=== PATIENT | male | born 1965 | race Caucasian/White ===

== ENCOUNTER 2023-02-19 00:23 | Day surgery (SDC) | payer BC, SELFPAY ==
[2022-11-29 13:06] VITALS: BMI 30.6
[2023-02-07 13:48] VITALS: BMI 30.6
--- NOTE | 2023-02-07 14:01 | PC.NURSE ---
Health history and medications updated. Instructions for bowel prep and NPO reviewed in relation to procedure 02/19/23
[2023-02-19 06:33] VITALS: BP 134/60; PULSE 76; RESP 18; TEMP 35.8; O2SAT 98
[2023-02-19] MEDS: LACTATED RINGERS 1,000 ML 150 ML IV CONT (06:34)
--- NOTE | 2023-02-19 07:14 | P.PNAN_ITS ---
Anes - Initial Pre Proc Eval Procedure: Operation Date: 02/19/23 07:30 Proposed Procedures p Screening Colonoscopy - Richy Esteves MD Date/Time: 02/19/23 07:14 Surgeon: Richy Esteves MD Pre Op Diagnosis: neoplasm screening Patient Data Age: 57 Gender: M Height: 1.83 m Weight: 103.7 kg Last Vital Signs Temp 96.5 F L 02/19/23 06:33 Pulse 76 02/19/23 06:33 Resp 18 02/19/23 06:33 BP 134/60 02/19/23 06:33 Pulse Ox 98 02/19/23 06:33 O2 Del Method Room Air 02/19/23 06:33 Allergies Allergy/AdvReac Type Severity Reaction Status Date / Time No Known Allergies Allergy Verified 02/19/23 06:32 Home Medications Medication Instructions Recorded Confirmed Type losartan 100 mg tablet 100 mg PO DAILY #90 tabs 11/22/22 02/19/23 Rx levothyroxine 75 mcg tablet 75 mcg PO DAILY 11/29/22 02/19/23 History Patient hx anesthesia problems: none Family hx anesthesia problems: none Results Review: All pre-operative results and documents have been reviewed as part of the pre- operative evaluation. [facility] Past Medical History Medical History HTN (hypertension) Hypothyroid Lower back pain Retinal detachment Family History Family History Father Hypertension Heart disease Social History Social History Smoking status: Never smoker Alcohol intake: current Drinks per week: 15 Alcohol use details: beer Substance use: never Substance use type: does not use Living arrangements: with family Occupation/Education: occupation Gender identity (if verbalized by the patient): Male Spiritual care concerns: No Anes - Eval Final PreProcedure Day of Procedure 02/19/23 07:14 Patient weight: normal Heart: irregular rhythm Lungs: clear to auscultation Airway: Mallampati scale class II Neurological: alert and oriented Last oral intake: >/= 8 hours ASA classification: II Emergent: no Anesthetic plan: proceed Anesthesia type and monitoring: general GIVS and standard monitoring Results Review: All pre-operative results and documents have been reviewed as part of the pre- operative evaluation. Informed Consent: The patient's anesthetic plan and its attendant risks and benefits were discussed with the patient/family/POA. Questions were solicited and answers provided to the satisfaction of the patient/family/POA.
--- NOTE | 2023-02-19 07:29 | PM.HPGS ---
History of Present Illness History of Present Illness Consent: Risks, benefits, and alternatives have been discussed and questions answered. Patient agrees to proceed with procedure. Chief complaint: neoplasm screening Narrative: Manpreet Ott is a 57 year old male Presents for screening colonoscopy. Patient recently found to have positive Cologuard test. Patient reports his current weight appetite and bowel movements are normal. Patient denies abdominal pain. He has had no bleeding. Family history noncontributory. Review of Systems Review of Systems: Review of systems noncontributory [facility] Past Medical History Medical History HTN (hypertension) Hypothyroid Lower back pain Retinal detachment Family History Family History Father Hypertension Heart disease Social History Social History Smoking status: Never smoker Alcohol intake: current Drinks per week: 15 Alcohol use details: beer Substance use: never Substance use type: does not use Living arrangements: with family Occupation/Education: occupation Gender identity (if verbalized by the patient): Male Spiritual care concerns: No Meds Home Medications and Allergies Home Medications Medication Instructions Recorded Confirmed Type losartan 100 mg tablet 100 mg PO DAILY #90 tabs 11/22/22 02/19/23 Rx levothyroxine 75 mcg tablet 75 mcg PO DAILY 11/29/22 02/19/23 History Allergies Allergy/AdvReac Type Severity Reaction Status Date / Time No Known Allergies Allergy Verified 02/19/23 06:32 Vital Signs Vital Signs - 24 hr 02/19/23 06:33 Temperature 96.5 F L Pulse Rate 76 Respiratory Rate 18 Blood Pressure 134/60 Pulse Oximetry 98 Oxygen Delivery Room Air Exam Narrative: Physical exam reveals patient to be alert. Vital signs stable. HEENT exam is unremarkable. Patient is anicteric. Lungs are clear to auscultation and percussion. Heart is without murmur or extra sounds. Abdomen bowel sounds present soft nontender with no organomegaly. Digital external rectal exam is normal. Assessment and Plan Assessment and plan (1) Positive colorectal cancer screening using Cologuard test: Code(s): R19.5 - Other fecal abnormalities Status: Acute Assessment and Plan: Patient presents today for screening colonoscopy because of positive Cologuard test. Further recommendations may be given after endoscopy.
[2023-02-19 07:58] VITALS: BP 117/67; PULSE 90; RESP 24; TEMP 35.8; O2SAT 98
[2023-02-19 08:08] VITALS: BP 114/93; PULSE 70; RESP 24; TEMP 35.8; O2SAT 99
[2023-02-19 08:18] VITALS: BP 121/96; PULSE 69; RESP 18; TEMP 35.8; O2SAT 99
== END 2023-02-19 08:25 | disposition home or self-care (01) ==
PROVIDERS: PCP Physician Assistant Medical; Visit Provider Internal Medicine Gastroenterology
PROC: 0DJD8ZZ Inspection of Lower Intestinal Tract, Via Natural or Artificial Opening Endoscopic (ICD-10-PCS; CPT 45378; principal; 2023-02-19 07:30)
DX: R19.5 Other fecal abnormalities (principal); K62.1 Rectal polyp; K64.8 Other hemorrhoids; I10 Essential (primary) hypertension; E03.9 Hypothyroidism, unspecified
CPT/HCPCS: 45380; 88305; J2704; J7120

== ENCOUNTER 2023-03-11 14:54 | Outpatient (CLI) | payer BC, SELFPAY ==
--- NOTE | 2023-03-21 12:00 | WPDHOLTEREM ---
Holter/Event Monitor Holter/Event Monitor Date of procedure: 03/11/23 Holter/Event Procedure: 48 Hr Holter Monitor Indications: Cardiac arrhythmia Conclusion: 1. 48 hour holter monitor on 03/11/23. 2. Underlying rhythm is sinus rhythm. HR range 47-167 bpm; average HR 77 bpm. HR at 167 bpm was at 14:55. 3. There are 12 premature supraventricular complexes and 1 supraventricular couplet. No supraventricular tachycardia. 4. There are 8,745 premature ventricular complexes, 2,035 ventricular bigeminy and 35,819 ventricular trigeminy. No ventricular tachycardia. 5. No sinoatrial or atrioventricular blocks. No significant pauses greater than 2 seconds. 6. No symptoms available for correlation.
== END 2023-03-11 14:55 | disposition home or self-care (01) ==
LOC: ANHCARD 14:55
PROVIDERS: PCP Physician Assistant Medical; Visit Provider Family Medicine
DX: I49.9 Cardiac arrhythmia, unspecified (principal)
CPT/HCPCS: 93225; 93226

== ENCOUNTER 2023-04-09 09:07 | Outpatient (CLI) | payer BC, SELFPAY ==
--- NOTE | 2023-04-13 15:40 | WPDHOMESLEEP ---
Sleep Study - Home Unattended Date of Study: 04/09/23 Ordering Provider: Emery Freedman DO Interpreting Provider: Nita Mehta MD Home Sleep Study Type: Watch PAT Height: 1.83 m Weight: 104.326 kg Body Mass Index: 31.1 Neck Circumference (inches): 16.75 [place]: 0 Reason for Sleep Study Irregular heartbeats Sleep History Farhad Ott is a 57-year-old man who rarely awakens from sleep feeling short of breath or awakens at night with heartburn, belching or coughing. He frequently snores loudly enough that others complain about it. He rarely has trouble sleeping with a cold. He rarely wakes up gasping for breath at night. He rarely has breathing problems at night observed by others. He rarely sweats excessively at night. He rarely notices his heart pounding or beating irregularly at night. He rarely falls asleep during the day. He rarely falls asleep involuntarily or while driving. He does not have loss of muscle tone with strong emotion. He does not have daytime difficulties due to excessive sleepiness. He does not feel paralyzed on waking or falling asleep. He does not have vivid dreamlike scenes on waking or falling asleep. He does not feel afraid to go to sleep. He does not have nightmares. He frequently remembers his dreams. He rarely has racing thoughts. He does not have feelings of sadness, depression or anxiety. He denies muscular tension. He does not have kicking at night or notice parts of his body jerking. He does not have crawling or aching feelings in his legs or any kind of leg pain at night. He does not have morning jaw pain. He does not grind his teeth during sleep. He is not bothered by pain during the day. He is not awakened by pain at night. He does not wake up feeling stiff in the morning with sore achy muscles or pain in the neck and spine. Normal bedtime is between 9:00 p.m. and 10:00 p.m.. He falls asleep within a few minutes. He typically wakes once at night to go to the bathroom. He generally can return to sleep within 5 minutes. He wakes in the morning at 6:15 a.m.. His weekend bedtime is between 11:00 p.m. and 12:00 p.m., he wakes at 7 in the morning. He generally does not take naps in the afternoon or evening. Sometimes of very short nap may be refreshing. Most of the time he feels refreshed when he wakes in the morning. Habits: Never smoked tobacco. No caffeine. Alcohol 3-4 beers. No recreational substances. [facility] Past Medical History Medical History Abnormal EKG GERD (gastroesophageal reflux disease) HTN (hypertension) Hypothyroid Irregular heart beat Lower back pain Retinal detachment Surgical History Surgical History H/O colonoscopy Family History Family History Father Hypertension Heart disease Social History Social History Smoking status: Never smoker Alcohol intake: current Drinks per week: 15 Alcohol use details: beer Substance use: never Substance use type: does not use Living arrangements: with family Occupation/Education: occupation Gender identity (if verbalized by the patient): Male Spiritual care concerns: No Medications Home Medications Medication Instructions Recorded Confirmed Type losartan 100 mg tablet 100 mg PO DAILY #90 tabs 11/22/22 03/19/23 Rx levothyroxine 75 mcg tablet 75 mcg PO DAILY #90 tabs 02/21/23 03/19/23 Rx pantoprazole 40 mg tablet,delayed 40 mg PO QAM #90 tabs 03/04/23 03/19/23 Rx release (Protonix) Sleep Procedure The sleep study was completed using [employer] a technically adequate device with seven channels: peripheral arterial tone, actigraphy, body position, snore, respiratory movement, pulse oximetry, sleep staging, and heart rate. Prior to using the device, the nico
[2023-04-13 15:53] VITALS: BMI 31.1
--- NOTE | 2023-06-19 15:44 | SLEEP ---
PER [facility] AT [facility] SLEEP PT REF TO SLEEP DENT
== END 2023-04-12 10:18 | disposition home or self-care (01) ==
PROVIDERS: Visit Provider Internal Medicine Cardiovascular Disease
DX: G47.33 Obstructive sleep apnea (adult) (pediatric) (principal); K21.9 Gastro-esophageal reflux disease without esophagitis; I10 Essential (primary) hypertension; E03.9 Hypothyroidism, unspecified
CPT/HCPCS: 95800

== ENCOUNTER 2023-05-03 07:34 | Outpatient (CLI) | payer BC, SELFPAY ==
--- NOTE | 2023-05-03 07:40 | ECHO_ITS ---
Patient Info Name: Manpreet Ott Age: 57 years : 1965 Gender: Male Ht: 72 in Wt: 230 lbs BSA: 2.33 m2 HR: 75 bpm BP: 140 / 88 mmHg Technical Quality: Good Exam Date: 05/03/2023 8:18 AM Exam Location: [facility] Patient Status: Outpatient Admit Date: 05/03/2023 Staff Ordering Physician: Emery Freedman DO Dermatology Sales Representative: Arabella Marcano RDCS Attending Provider: Emery Freedman DO Referring Physician: Tano PINO; Exam Type: CA echo doppler color flow Study Info Indications I49.3 - Ventricular premature depolarization Complete two-dimensional, color flow and Doppler transthoracic echocardiogram is performed. Summary 1. Complete two-dimensional, color flow and Doppler transthoracic echocardiogram is performed. 2. Left ventricular chamber dimension is normal. 3. Left ventricular systolic function is normal, estimated at 60-65%. 4. The left ventricular diastolic function is normal. 5. E/e' 9 is minimally elevated. 6. Global longitudinal strain is abnormal at -14.7%. 7. Left atrial chamber dimension is mildly enlarged. 8. There is trace mitral valve regurgitation. 9. There is trace tricuspid valve regurgitation. 10. No pulmonary hypertension, estimated pulmonary arterial systolic pressure is 21 mmHg. Left Ventricle E/e' 9 is minimally elevated. Global longitudinal strain is abnormal at -14.7%. Left ventricular chamber dimension is normal. Left ventricular systolic function is normal, estimated at 60-65%. The left ventricular diastolic function is normal. Right Ventricle Right ventricular systolic function is normal and with normal TAPSE 2.2 cm. Right ventricular chamber dimension is normal. Left Atria Left atrial chamber dimension is mildly enlarged. Right Atria Right atrial chamber dimension is normal. Aortic Valve The aortic valve is trileaflet. There is no aortic valve stenosis. There is no aortic valve regurgitation. Pulmonic Valve There is no pulmonic regurgitation. Mitral Valve There is no mitral valve stenosis. There is trace mitral valve regurgitation. Tricuspid Valve There is trace tricuspid valve regurgitation. No pulmonary hypertension, estimated pulmonary arterial systolic pressure is 21 mmHg. Pericardium/Pleural There is no pericardial effusion. Inferior Vena Cava Normal inferior vena cava with >50% collapse upon inspiration consistent with normal right atrial pressure, 5 mmHg. Aorta The aortic root size at the sinus of Valsalva is normal. Left Ventricular Outflow Tract Name Value Normal LVOT 2D LVOT Diameter 2.0 cm LVOT Doppler LVOT Peak Velocity 83 cm/s LVOT Peak Gradient 3 mmHg LVOT Mean Gradient 2 mmHg LVOT VTI 18 cm LVOT VTI/AV VTI Ratio 0.9 LVOT Stroke Volume 59 ml LVOT CO 3.6 l/min LVOT CI 1.5 l/min/m2 Pulmonic Valve Name Value Normal
--- NOTE | 2023-05-03 07:40 | EST_ITS ---
Patient Info Name: Manpreet Ott Age: 57 years : 1965 Gender: Male Ht: 72 in Wt: 230 lbs BSA: 2.33 m2 HR: 68 bpm BP: 133 / 79 mmHg Heart Rhythm: Sinus Rhythm Exam Date: 05/03/2023 9:35 AM Exam Location: [facility] Stress Patient Status: Outpatient Admit Date: 05/03/2023 Staff Ordering Physician: Emery Freedman DO Attending Provider: Emery Freedman DO Exercise Technologist: Ivy Henderson CT Exercise Physician: Emery Freedman DO Exam Type: CA stress test treadmill Study Info Indications I49.3 - Ventricular premature depolarization A treadmill exercise stress test was performed. Summary 1. 1. Negative Theodore exercise stress test for ischemic ST changes by ECG criteria. 2. 2. Reduced functional capacity achieving 8.9 METs of workload due to early termination of test as a result of very high blood pressure with exercise. 3. 3. Hypertensive response to exercise. 4. 4. Appropriate HR response to exercise. 5. 5. Appropriate HR recovery at 1 minute post exercise. 6. 6. No imaging with stress testing. 7. 7. Patient informed of the above results. Protocol: Theodore Stress ECG Details Stage: REST Duration (min): 6 min : 32 sec Speed (mph): 0.0 Grade (%): 0 HR (bpm): 70 SBP (mmHg): 133 DBP (mmHg): 79 METS: --- Stage: STAGE 1 Duration (min): 1 min : 0 sec Speed (mph): 1.7 Grade (%): 10 HR (bpm): 100 SBP (mmHg): 133 DBP (mmHg): 79 METS: --- Stage: STAGE 1 Duration (min): 2 min : 0 sec Speed (mph): 1.7 Grade (%): 10 HR (bpm): 111 SBP (mmHg): 133 DBP (mmHg): 79 METS: --- Stage: STAGE 1 Duration (min): 3 min : 0 sec Speed (mph): 1.7 Grade (%): 10 HR (bpm): 117 SBP (mmHg): 210 DBP (mmHg): 59 METS: --- Stage: STAGE 2 Duration (min): 1 min : 0 sec Speed (mph): 2.5 Grade (%): 12 HR (bpm): 120 SBP (mmHg): 220 DBP (mmHg): 64 METS: --- Stage: STAGE 2 Duration (min): 2 min : 0 sec Speed (mph): 2.5 Grade (%): 12 HR (bpm): 123 SBP (mmHg): 230 DBP (mmHg): 63 METS: --- Stage: STAGE 2 Duration (min): 3 min : 0 sec Speed (mph): 2.5 Grade (%): 12 HR (bpm): 127 SBP (mmHg): 229 DBP (mmHg): 62 METS: --- Stage: STAGE 3 Duration (min): 1 min : 0 sec Speed (mph): 3.4 Grade (%): 14 HR (bpm): 133 SBP (mmHg): 237 DBP (mmHg): 65 METS: --- Stage: STAGE 3 Duration (min): 1 min : 0 sec Speed (mph): 3.4 Grade (%): 14 HR (bpm): 133 SBP (mmHg): 237 DBP (mmHg): 65 METS: --- Stage: RECOVERY Duration (min): 0 min : 59 sec Speed (mph): 0.0 Grade (%): 0 HR (bpm): 105 SBP (mmHg): 237 DBP (mmHg): 65 METS: --- Stage: RECOVERY Duration (min): 1 min : 59 sec Speed (mph): 0.0 Grade (%): 0 HR (bpm): 91 SBP (mmHg): 237 DBP (mmHg): 65 METS: --- Stage: RECOVERY Duration (min): 2 min : 59 sec Speed (mph): 0.0 Grade (%): 0 HR (bpm): 86 SBP (mmHg): 169 DBP (mmHg): 74 METS: --- Stage:
== END 2023-05-03 07:35 | disposition home or self-care (01) ==
LOC: ANHCARD 07:35
PROVIDERS: Visit Provider Internal Medicine Cardiovascular Disease
DX: I49.3 Ventricular premature depolarization (principal)
CPT/HCPCS: 93017; 93306

== ENCOUNTER 2024-11-10 09:39 | Outpatient (CLI) | payer BC, SELFPAY ==
--- NOTE | 2024-11-15 15:40 | P.SLEEP_ITS ---
Sleep Study - Home Unattended Date of Study: 11/10/24 Ordering Provider: KB Caro Interpreting Provider: Nita Mehta MD Home Sleep Study Type: Watch PAT Height: 1.83 m Weight: 104.326 kg Body Mass Index: 31.1 Neck Circumference (inches): 18 [place]: 0 Reason for Sleep Study Known obstructive sleep apnea previously demonstrated, patient is having a home sleep test to requalify for PAP therapy * 04/09/2023, home sleep test, severe obstructive sleep apnea, AHI 42.8, mohini 78%, central apnea hypopnea index 1.3, 11.7% of sleep time with Con-Bautista respirations. * 05/03/2023, echo showed ejection fraction 60-65%, Sleep History Farhad Ott is a 59-year-old man with hypertension who had a home sleep test on 04/09/2023 showing severe obstructive sleep apnea. He presents now to re- qualify for treatment. It is been too long since his last study to obtain PAP equipment. This history is a revision of his prior sleep history. He rarely awakens from sleep feeling short of breath or awakens at night with heartburn, belching or coughing. He frequently snores loudly enough that others complain about it. He rarely has trouble sleeping with a cold. He rarely wakes up gasping for breath at night. He rarely has breathing problems at night observed by others. He rarely sweats excessively at night. He rarely notices his heart pounding or beating irregularly at night. He rarely falls asleep during the day. He rarely falls asleep involuntarily or while driving. He does not have loss of muscle tone with strong emotion. He does not have daytime difficulties due to excessive sleepiness. He does not feel paralyzed on waking or falling asleep. He does not have vivid dreamlike scenes on waking or falling asleep. He does not feel afraid to go to sleep. He does not have nightmares. He frequently remembers his dreams. He rarely has racing thoughts. He does not have feelings of sadness, depression or anxiety. He denies muscular tension. He does not have kicking at night or notice parts of his body jerking. He does not have crawling or aching feelings in his legs or any kind of leg pain at night. He does not have morning jaw pain. He does not grind his teeth during sleep. He is not bothered by pain during the day. He is not awakened by pain at night. He does not wake up feeling stiff in the morning with sore achy muscles or pain in the neck and spine. Normal bedtime is between 9:00 p.m. and 10:00 p.m. on work days and 11:00 p.m. on his days off. He falls asleep within a few minutes. He typically wakes twice at night to go to the bathroom. He generally can return to sleep within 5 minutes. He wakes in the morning at 5:45 a.m., often waking before his desired wake time. He generally does not take naps in the afternoon or evening. Habits: Never smoked tobacco. No caffeine. Alcohol : 1 glass of wine 1-2 nights a week. No recreational substances. [facility] Past Medical History Medical History ) GERD (gastroesophageal reflux disease) HTN (hypertension) Hypothyroid Irregular heart beat Lower back pain Retinal detachment Surgical History Surgical History ) H/O colonoscopy Family History Family History ) Father , fanta to staph infection Hypertension Heart disease Mother No problems noted. Sibling Malignant neoplasm of prostate Social History Social History ) Smoking status: Never smoker Alcohol intake: current Drinks per week: 15 Alcohol use details: beer Substance use: never Substance use type: does not use Lack of Transportation: No Lack of Food: Never True Current Housing: I Have Housing Concerned About Future Housing: No Difficulty Paying Gas/Electric Bills: No Difficulty Paying for Meds: No Currently Unemployed: No Difficulty w/ Childcare or Family Care: No Living arrangements: with family Occupation/Education: occupation Gender identity (if verbalized by the patient): Male Sexual Orientation (if Verbalized by the Patient): Straight or Heterosexual Spiritual care concerns: No Medications Home Medications ?Medication ?Instructions ?Recorded ?Confirmed ?Type pantoprazole 40 mg tablet,delayed 40 mg PO QAM #90 tabs 08/19/24 09/28/24 Rx release (Protonix) levothyroxine 75 mcg tablet See Rx Instructions .Route 08/25/24 09/28/24 Rx .COMPLEX #90 tabs losartan 100 mg tablet See Rx Instructions .Route 08/25/24 09/28/24 Rx .COMPLEX #90 tabs Sleep Procedure The sleep study was completed using WatchPAT a technically adequate device with seven channels: peripheral arterial tone, actigraphy, body position, snore, respiratory movement, pulse oximetry, sleep staging, and heart rate. Prior to using the device, the patient received verbal and written instructions for its application and was provided with the help desk phone number for additional telephonic instruction with 24-hour availability of qualified personnel to answer questions. Sleep Architecture The total recording time is 7 hours 36 minutes. The total sleep time is 6 hours 23 minutes. Sleep latency is 26 minutes. REM latency is 64 minutes. The patient had 14 episodes of waking. Sleep architecture shows 9% deep sleep, 67% light sleep, and 25% stage REM. The patient spent 32.6 minutes, 8.5% of total sleep time in the supine position. Respiratory Analysis The overall AHI is 34.6. The central AHI is 9.5. The REM AHI was 30.2. There was Con-Bautista respirations noted for 15.7% of sleep time. Oximetry Data The oxygen desaturation index is 35.2. The mean saturation is 92%, the lowest saturation is 74%, and the patient spent 32.1 minutes, 8.4 % of the sleep time, below 88%. Snoring Profile Snoring was present, average intensity 45 dB. The patient snored above 45 dB for 125 minutes, 32.6% of the sleep time. Cardiac Profile The average pulse is 59 beats per minute, the lowest pulse is 33 beats per minute, and the highest pulse is 109 beats per minute. Cardiac are rhythm analysis and sleep did not detect suspicious atrial fibrillation. The patient had an average of 10.9 premature beats per minute. Assessment and Plan Assessment and Plan (1) Obstructive sleep apnea: Code(s): G47.33 - Obstructive sleep apnea (adult) (pediatric) Status: Acute Assessment and Plan: This home sleep test using WatchPat on 11/10/2024 shows overall severe obstructive sleep apnea, an apnea-hypopnea index of 34.6 using a 4% criteria, 32.1 minutes below 88% and 15.7% of the night spent in Con-Bautista respiration. The central apnea-hypopnea index is 9.5 which is elevated, normal is equal to or less than 5. The mohini saturation was 74% and the patient had loud snoring above 45 decibels for 125 minutes. Due to Con-Bautista respiration and degree of hypoxemia, the patient needs to have a full night CPAP titration in the sleep lab. He should not nap on the day of the study. He may benefit from having a sleep aid available, if needed, to use at the sleep lab to initiate and maintain sleep. BMI is 31. Weight management is advised. Clinical data suggests that weight loss of 10% can reduce the severity of respiratory events and snoring and improve AHI by as much as 25%. (2) Con-Bautista breathing: Code(s): R06.3 - Periodic breathing Status: Acute Assessment and Plan: The patient spent 15.7% of the sleep time with Con-Bautista respiration, and the central apnea index was elevated at 9.7. Patient is not a candidate for auto PAP which will make this worse. He needs an in-lab CPAP titration. On 05/03/2023, echo showed ejection fraction 60-65%. If the patient has had any cardiac events in the last year he needs to have his echo repeated. At the time of his initial WatchPat his ejection fraction was normal. Data The data obtained during this sleep study is adequate for interpretation. Certification This sleep study has been reviewed by a board certified sleep medicine physician.
[2024-11-15 15:55] VITALS: BMI 31.1
== END 2024-11-11 11:49 | disposition home or self-care (01) ==
LOC: ANHCSM 09:41
PROVIDERS: PCP Nurse Practitioner Family; Visit Provider Physician Assistant
DX: G47.33 Obstructive sleep apnea (adult) (pediatric) (principal)
CPT/HCPCS: 95800